=== PATIENT | male | born 1990 | race African-American/Black ===

== ENCOUNTER 2022-05-12 18:57 | Emergency (ER) | payer MEDICAID, OTHER ==
[~2022-05-12] VITALS: Ht 182.9 cm; Wt 90.7 kg
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
[2022-05-12] MEDS ORDERED: KETOROLAC TROMETHAMINE INJ 30 MG/ML VIAL ONE (20:47)
[2022-05-12] MEDS ORDERED: CYCLOBENZAPRINE 10 MG TABLET PO ONE (21:00)
[2022-05-12] MEDS ORDERED: KETOROLAC TROMETHAMINE INJ 60 MG/2 ML VIAL IM ONE (21:00)
--- NOTE | 2022-05-12 21:00 | NUR ---
PATIENT TAKEN TO RADIOLOGY DEPT. AMBULATORY FOR X-RAY
[2022-05-12] MEDS ORDERED: IBUP-1955 PO (23:05)
[2022-05-12] MEDS ORDERED: CYCL10TA9 PO (23:05)
--- NOTE | 2022-05-12 23:15 | NUR ---
Patient discharged to home in stable condition. Written and verbal after care instructions given. Patient verbalizes understanding of instruction.
[2022-05-12 23:24] VITALS: BP 110/60
== END 2022-05-12 23:15 | disposition home or self-care (01) ==
LOC: ER 18:59
DX: S16.1XXA Strain of muscle, fascia and tendon at neck level, initial encounter (principal); S39.012A Strain of muscle, fascia and tendon of lower back, initial encounter; Z79.899 Other long term (current) drug therapy; V89.2XXA Person injured in unspecified motor-vehicle accident, traffic, initial encounter; Y93.89 Activity, other specified; Y92.89 Other specified places as the place of occurrence of the external cause; Y99.8 Other external cause status
CPT/HCPCS: 99283; 96372; 72100; J1885